=== PATIENT | female | born 1950 | race Caucasian/White ===

== ENCOUNTER → 2017-07-14 | Outpatient (CLI) | payer MEDICARE, OTHER | END | disposition home or self-care (01) | LOC: PCVCCLINIC 11:13 | PROVIDERS: ATTEND Internal Medicine Cardiovascular Disease | DX: I25.10 Atherosclerotic heart disease of native coronary artery without angina pectoris (principal); I10 Essential (primary) hypertension; E78.00 Pure hypercholesterolemia, unspecified; I65.23 Occlusion and stenosis of bilateral carotid arteries; E11.9 Type 2 diabetes mellitus without complications; Z87.442 Personal history of urinary calculi; Z79.82 Long term (current) use of aspirin; Z88.0 Allergy status to penicillin; Z88.2 Allergy status to sulfonamides | CPT/HCPCS: 80061; 93005; G0463 ==

== ENCOUNTER → 2017-09-09 | Outpatient (CLI) | payer MEDICARE, OTHER ==
[2017-08-02 14:00] VITALS: BP 149/82
[~2017-09-09] MED LIST: ASPI325T8 PO; ATOR40TA PO; BUTA1CAP8 PO; CHOL100013 PO; CITA20TA9 PO; DOCU-109 PO; Diovan; FENT1PAT13 TD; LYSI500T3 PO; Lipitor; METH-38 PO; MONT10TA9 PO; OMEG100021 PO; PANT40TA3 PO; POTA10TA4 PO; TOPI25TA52 PO; TOPI50TA38 PO; TRAM50TA PO; VALS160T3 PO; VIT1TAB.8 PO; [UNRECOGNIZED DRUG - OTHER]; celexa; fish oil; percocet; topamax; vitamin e
[2017-09-09 12:35] LABS: BASO # 0.1 x10^3/uL (0.0-0.2); BASO % 1 % (0-3); EOS % 4 % (0-3); HEMATOCRIT 42.2 % (36.0-47.0); HEMOGLOBIN 14.2 g/dL (12.0-15.5); LYMPH # 1.8 x10^3/uL (1.0-4.8); LYMPH % 31 % (24-48); MEAN CORPUSCULAR HEMOGLOBIN 30 pg (25-35); MEAN CORPUSCULAR HGB CONC 34 g/dL (31-37); MEAN CORPUSCULAR VOLUME 90 fL (79-100); MONO % 11 % (0-9); NEUT % 53 % (31-73); PLATELET COUNT 182 x10^3/uL (140-400); RED BLOOD COUNT 4.67 x10^6/uL (3.50-5.40); RED CELL DISTRIBUTION WIDTH 12.8 % (11.5-14.5); WHITE BLOOD COUNT 5.7 x10^3/uL (4.0-11.0)
[2017-09-09 12:48] LABS: ALBUMIN 3.6 g/dL (3.4-5.0); ALBUMIN/GLOBULIN RATIO 1.1 (1.0-1.7); CALCIUM 9.2 mg/dL (8.5-10.1); CREATININE 0.9 mg/dL (0.6-1.0); GFR 62.8; POTASSIUM 4.1 mmol/L (3.5-5.1); TOTAL BILIRUBIN 0.5 mg/dL (0.2-1.0); TOTAL PROTEIN 6.8 g/dL (6.4-8.2)
[2017-09-09 12:57] LABS: INR 1.1 (0.8-1.1); PROTHROMBIN TIME PATIENT 13.3 SEC (11.7-14.0)
== END | disposition home or self-care (01) ==
LOC: SURGPAT 10:57
PROVIDERS: ATTEND Neurological Surgery
DX: Z01.818 Encounter for other preprocedural examination (principal)
CPT/HCPCS: 36415; 80053; 85025; 85610; 85730; 87641

== ENCOUNTER 2017-09-19 07:15 | Inpatient (IN) | payer MEDICARE, OTHER ==
--- NOTE | 2017-09-16 15:37 | PREOP HP ---
DATE OF SERVICE: 09/19/2017 HISTORY OF PRESENT ILLNESS: The patient is a pleasant 66-year-old who is having continued difficulty with severe right hip and right anterior thigh and leg pain. The problem has been present for about 6 months. Began spontaneously. She rates her pain as a 6/10 during the day, rating it as a 10/10 at its worse. Standing and lying on the right side increases her pain. Lying on the left side seems to help her. Keeping her right leg bent also helps. She has had physical therapy as well as epidural steroid injections, which have not given her significant relief. She says that pain awakens her at night. In 2014, she did undergo lumbar microsurgery at L2-L3 and had similar pain, but says that the pain resolved until recently. I studied her with lumbar myelography. PAST MEDICAL HISTORY: Chest pains, headaches, head or neck injury, CAD, hepatitis, hypertension, kidney stones, ulcers, stroke, cold sores/fever blisters. PAST SURGICAL HISTORY: 1975, 1978, cervical laminectomy 1998, cervical diskectomy 2000, kidney stones 2007, LMD at L2-L3 in 02/2015. FAMILY HISTORY: Cancer, diabetes, CAD, hypertension, and migraine headaches. SOCIAL HISTORY: Retired. , with 2 kids. Exercises daily by walking. Nonsmoker. ETOH 1-2 times a year. Consumes 2 caffeinated beverages daily. ALLERGIES: PENICILLIN, CODEINE AND SULFA. CURRENT MEDICATIONS: Topamax, Celexa, Nexium, Lipitor, Diovan, aspirin, vitamin C, vitamin D, vitamin E, fish oil, Percocet. REVIEW OF SYSTEMS: A 12-point review of systems was obtained and is noncontributory except for that mentioned above. PHYSICAL EXAMINATION: NEUROSURGERY EXAMINATION: GENERAL APPEARANCE: Alert, pleasant, in no acute distress. HEAD: Normocephalic and atraumatic. SKIN: Warm and dry. MUSCULOSKELETAL: Lumbar paraspinal muscle bulk is normal, restricted range of motion of lumbar spine, [id number] tenderness of lower lumbar spine with palpation, normal range of motion of the lower extremities bilaterally. EXTREMITIES: No clubbing, cyanosis, or edema. NEUROLOGIC: Alert and oriented x 3, normal recent and remote memory, strength 5/5 in bilateral lower extremities, sensory was intact to light touch in bilateral lower extremities except for decreased sensation in the right anterior thigh, reflexes were trace and symmetric in the lower extremities bilaterally, normal gait. IMAGING: Reviewed. I reviewed a lumbar myelogram and post-myelogram CT scan. On that study, post-surgical changes are seen at L2-L3. At this level, there is some mild reverse spondylolisthesis which is associated with posterior disk protrusion. It is more prominent on the right side. There is moderately severe right foraminal encroachment at this level. There is also a posterior disk protrusion at L3-L4. ASSESSMENT: 1. Intervertebral disk disorders with radiculopathy, lumbosacral region. 2. Spondylolisthesis, lumbosacral region. PLAN: I believe the problems at L2-L3 are responsible for the majority of her pain. My recommendation is that she consider further surgery to decompress the exiting nerve roots in the foramen performing a wide diskectomy. She will need combined with this an instrumented lumbar fusion. I spoke with her about the operation. I spoke about the anterior diskectomy and fusion. I spoke about the posterior instrumentation and posterolateral fusion as well as microdecompression. We spoke about the technique and the risks involved as well as the expected postoperative course. She understands. She would like to go ahead. We will make the arrangements. TWILA BUSTILLO MD DR: BRENDON/meeta JOB#: [id number] / [id number]
[2017-09-19] VITALS (11 sets, daily range): BP systolic 124–144; BP diastolic 51–70
[~2017-09-19] VITALS: Ht 160 cm; Wt 74.4 kg
[~2017-09-19 07:15] MED LIST changes: +BACITRACIN 50,000 UNIT in IV NORMAL SALINE 1000ML BAG 1,000 ML IRR ONE; -DOCU-109 PO; -FENT1PAT13 TD; +IV RINGERS,LACTATED 1000ML 1,000 ML IV SCH; +LIDOCAINE 1% PF 2 ML VIAL. ID PRN; -METH-38 PO; +PROCHLORPERAZINE 10 MG/2 ML VIAL. IV PRN; -TRAM50TA PO; +VANCOMYCIN 1GM IVPB FOR OMNI 250 ML IV PRN; +fentaNYL PF VIAL 100 MCG/2 ML VIAL IV PRN
[2017-09-19] MEDS ORDERED: KETOROLAC 60 MG/2 ML INJ FOR OR. ONE (07:51)
[2017-09-19] MEDS ORDERED: BUPIVAC MPF-EPI 0.5%-1:200000 30 ML VIAL. ONE (07:51)
[2017-09-19] MEDS ORDERED: THROMBIN TOPICAL 20,000 UNIT SPRAY.SYRN KIT TP ONE (07:51)
[2017-09-19] MEDS ORDERED: GELATIN SPONGE SIZE 100. ONE (07:51)
[2017-09-19] MEDS ORDERED: PROPOFOL 50 ML IV ONE (08:50)
[2017-09-19] MEDS ORDERED: LIDOCAINE 2% PF Vial for OR 5 ML VIAL. ONE (08:50)
[2017-09-19] MEDS ORDERED: PROPOFOL 20 ML IV ONE (08:50)
[2017-09-19] MEDS ORDERED: 0.9 % SODIUM CHLORIDE 50 ML VIAL. IJ ONE (08:50)
[2017-09-19] MEDS ORDERED: REMIFENTANIL 2 MG VIAL. IV ONE (08:51)
[2017-09-19] MEDS ORDERED: fentaNYL PF VIAL 100 MCG/2 ML VIAL ONE (08:51)
[2017-09-19] MEDS ORDERED: ROCURONIUM 50 MG/5 ML VIAL. ONE (08:51)
[2017-09-19] MEDS ORDERED: SUCCINYLCHOLINE 200 MG/10 ML VIAL. ONE (08:51)
--- NOTE | 2017-09-19 09:36 | RAD ---
Indication: Lumbar herniated disc and spondylolisthesis. Axial imaging through the lumbar spine was performed without contrast. Sagittal and coronal reformations were also performed. Curvature of the lumbar spine is normal. There is minimal retrolisthesis of L2 on L3. Vertebral body heights are maintained. No acute compression fracture is detected. There is degenerative disc disease L2-3 level with disc space narrowing and marginal spurring. Canal is difficult to assess without intrathecal contrast. Bony canal is patent. The paraspinous tissues demonstrate marked atherosclerotic changes throughout the abdominal aorta which is nonaneurysmal. No paraspinous mass is seen. A disc/ossify complex does appear to narrow the neural foramina on the left at the L2-3 and L3-4 levels. Impression: Lumbar spondylosis, greatest at L2-3 level. There is neuroforaminal narrowing, described above. No acute bony abnormality is detected. PQRS Compliance Statement: One or more of the following individualized dose reduction techniques were utilized for this examination: 1. Automated exposure control 2. Adjustment of the mA and/or kV according to patient size 3. Use of iterative reconstruction technique
[2017-09-19] MEDS ORDERED: PROPOFOL 100 ML IV ONE (09:51)
[2017-09-19] MEDS ORDERED: DEXAMETHASONE SOD PHOS 20 MG/5 ML VIAL. ONE (11:44)
[2017-09-19] MEDS ORDERED: ONDANSETRON PF 4 MG/2 ML VIAL. ONE (11:44)
[2017-09-19] MEDS ORDERED: GLYCOPYRROLATE 1 MG/5 ML VIAL. ONE (12:11)
[2017-09-19] MEDS ORDERED: ONDANSETRON PF 4 MG/2 ML VIAL. IV PRN (13:15)
[2017-09-19] MEDS ORDERED: ZOLPIDEM 5 MG TABLET. PO PRN (13:15)
[2017-09-19] MEDS ORDERED: diphenhydrAMINE HCL 25 MG CAPSULE PO PRN (13:15)
[2017-09-19] MEDS ORDERED: 0.9 % SODIUM CHLORIDE 10 ML DISP.SYRIN. IV PRN (13:15)
[2017-09-19] MEDS ORDERED: CALCIUM CARBONATE 500 MG TAB.CHEW PO PRN (13:15)
[2017-09-19] MEDS ORDERED: fentaNYL PF VIAL 100 MCG/2 ML VIAL IV PRN ×2 (13:15→17:30)
[2017-09-19] MEDS ORDERED: diphenhydrAMINE 50 MG/ML VIAL IV PRN (13:15)
[2017-09-19] MEDS ORDERED: MAG HYDROX/ALUMINUM HYD/SIMETH 30 ML ORAL.SUSP PO PRN (13:15)
[2017-09-19] MEDS ORDERED: MAGNESIUM HYDROXIDE 2,400 MG/30 ML ORAL.SUSP. PO PRN (13:15)
[2017-09-19] MEDS ORDERED: DESFLURANE > 120 MINUTES IH ONE (14:12)
[2017-09-19] MEDS ORDERED: NEOSTIGMINE 10 MG/10 ML VIAL. ONE (14:28)
[2017-09-19] MEDS ORDERED: REMIFENTANIL 1 MG VIAL. IV ONE (14:42)
[2017-09-19] MEDS: fentaNYL PF VIAL 100 MCG/2 ML VIAL IV PRN ×7 (16:45→23:48)
--- NOTE | 2017-09-19 17:52 | OP ---
DATE OF SURGERY: 09/19/2017 PREOPERATIVE DIAGNOSES: Recurrent herniated disc with retrolisthesis and lumbar radiculopathy, L2-L3. POSTOPERATIVE DIAGNOSIS: Recurrent herniated disc with retrolisthesis and lumbar radiculopathy, L2-L3. OPERATION PERFORMED: 1. Reop hemilaminotomy and microdiscectomy, L2-L3, right. 2. Posterior instrumentation, L2-L3, posterolateral fusion L2-L3 with allograft and autograft bone. 3. The operation was done with EMG monitoring, fluoroscopy, microscopic dissection, [employer] guidance. SURGEON: Jarad Bustillo M.D. COSTUMER ASSISTANT: KEZIA Velez, who assisted with the exposure, the decompression, instrumentation and closure. OPERATIVE INDICATIONS: The patient is a pleasant 66-year-old woman who developed intractable back and right leg pain, which was very severe. She had imaging studies, recurrent disc herniation on the right side at L2-L3 along with the development of retrolisthesis at that level, and I recommended surgery to perform a discectomy combined with an instrumented fusion to help prevent any further incidence. I discussed with her the surgery, the risks, the technique and the expected postoperative course and she wished to go ahead. The patient in the past had undergone lumbar microsurgery at this level, L2-L3, on the right side for a right-sided disc herniation. Initially had done well following that surgery, but then deteriorated and then presented to me with a recurrence and these problems. DESCRIPTION OF PROCEDURE: Following general endotracheal anesthesia, the patient was positioned prone on the Temo table with lumbar regions prepped and draped in standard fashion. HARRIS hose and AV impulse boots were applied for DVT prophylaxis. The microscope was draped. Fluoroscopy was draped and brought into field. Monitoring was established. Vancomycin 1 gram was given. Using fluoroscopic guidance, an incision was made from L1 to L3. I took it down through skin and subcutaneous tissue. I attached the Brain[employer] star to L1 spinous process and then initialized the [employer] system. I then dissected and created an exposure by carrying the paraspinal muscles laterally and placing self-retaining retractors on the left side. I drilled into the posterior aspect of the pedicles with a high speed air drill and then passed the black ball, followed by ball tip probe, followed by tap and then screws were placed on this side in L2 and L3. I also drilled into the pedicles of L2 and L3 on the right side. I did place a screw on the right side at L2. I did not place a screw yet on the right at L3. I then brought in the microscope and then there was dense scar surrounding her previous hemilaminotomy side. I trimmed down the edges of her previous hemilaminotomy and then drilled directly down along the superior aspect of the pedicle and worked gently down and exposed the disc just above the pedicle. I worked medially and did enlarge her previous foraminotomy and at this point, then working superiorly to the level of the disc I encountered moderate subligamentous disc herniation, which I removed using the micro blunt hook and micro instruments and gently retracting the dura and scar and allowing access to this disc. As I worked, the entire region became very well decompressed. Following the discectomy then I placed the screw in L3 on the right. I placed the rods and I did distract slightly on the right side, which helped reduce the retrolisthesis. The construct was torqued in a sequential fashion. I irrigated copiously. During this time, I did drill and excoriated the transverse processes and lateral facets at L2 and L3 and placed a needle into the right iliac crest and then withdrew 20 mL of bone marrow, which I placed with allograft and autograft bone and placed this into the gutters bilaterally. I irrigated copiously then. I had an excellent construct. The fusion was in perfect position. The root was very well decompressed. The films looked quite good. I irrigated and closed the wound in layers after obtaining excellent hemostasis. The skin was closed with 4-0 subcuticular stitch. Operation went very well and the patient was taken to recovery room in excellent condition. I was quite pleased with the surgery. JARAD BUSTILLO MD DR: BRENDON/meeta JOB#: [id number] / [id number] SULEIMAN
[2017-09-19] MEDS: POTASSIUM CL 20MEQ D5-0.45NACL 1,000 ML IV SCH (18:12)
[2017-09-19] MEDS: MONTELUKAST SODIUM 10 MG TABLET. PO SCH (20:22)
[2017-09-19] MEDS: METHOCARBAMOL 750 MG TABLET PO SCH (20:22)
[2017-09-19] MEDS: DOCUSATE SODIUM 100 MG CAPSULE. PO SCH (20:22)
[2017-09-19] MEDS: ATORVASTATIN CALCIUM 40 MG TABLET. PO SCH (20:22)
[2017-09-19] MEDS: TOPIRAMATE 25 MG TABLET. PO SCH (20:23)
[2017-09-19] MEDS ORDERED: VANCOMYCIN 1 GM in IV DEXTROSE 5% 250 ML IV ONE (23:00)
[2017-09-20 03:51] VITALS: BP 123/73
[2017-09-20] MEDS: fentaNYL PF VIAL 100 MCG/2 ML VIAL IV PRN (04:45)
[2017-09-20] MEDS: POTASSIUM CL 20MEQ D5-0.45NACL 1,000 ML IV SCH ×2 (05:20→18:40)
[2017-09-20] MEDS ORDERED: traMADol 50 MG TABLET PO PRN (05:45)
[2017-09-20] MEDS: PANTOPRAZOLE 40 MG TABLET.DR. PO SCH (06:25)
[2017-09-20 06:43] VITALS: BP 118/70
[2017-09-20] MEDS ORDERED: LYSINE 500 MG PO SCH (07:00)
[2017-09-20] MEDS: OMEGA-3 FATTY ACIDS/FISH OIL 1,000 MG CAPSULE. PO SCH (08:34)
[2017-09-20] MEDS: CHOLECALCIFEROL (VITAMIN D3) 1,000 UNIT TABLET PO SCH (08:35)
[2017-09-20] MEDS: POTASSIUM CITRATE 10 MEQ TABLET.ER PO SCH (08:35)
[2017-09-20] MEDS: ASPIRIN 325 MG TABLET PO SCH (08:35)
[2017-09-20] MEDS: DOCUSATE SODIUM 100 MG CAPSULE. PO SCH ×2 (08:35→20:50)
[2017-09-20] MEDS: METHOCARBAMOL 750 MG TABLET PO SCH (08:36)
[2017-09-20] MEDS: CITALOPRAM 20 MG TABLET. PO SCH (08:36)
[2017-09-20] MEDS: TOPIRAMATE 25 MG TABLET. PO SCH ×2 (08:37→20:51)
[2017-09-20] MEDS: LOSARTAN POTASSIUM 50 MG TABLET. PO SCH (08:41)
[2017-09-20] MEDS ORDERED: OMEGA-3 FATTY ACIDS/FISH OIL 1,000 MG CAPSULE. PO ONE (09:00)
--- NOTE | 2017-09-20 10:13 | PDOC ---
PROGRESS NOTES Subjective Subjective POD #1 up in chair legs feel better back/ incisional pain had difficulty voiding this morning and had straight cath Objective Objective Vital Signs Date Time Temp Pulse Resp B/P (MAP) Pulse Ox O2 Delivery O2 Flow Rate FiO2 09/20/17 08:41 84 120/67 09/20/17 06:55 Room Air 09/20/17 06:43 98.4 17 99 98.4 09/19/17 16:45 10.0 Intake and Output 09/20/17 07:00 Intake Total 4010 ml Output Total 1050 ml Balance 2960 ml Intake Oral 740 ml IV Total 3270 ml Output Urine Total 900 ml Estimated Blood Loss 150 ml Physical Exam General: Alert, Oriented X3, Cooperative MUSCULOSKELETAL: Other (PLUNKETT) Skin: Other (dressing D,I, flat) Plan Plan of Care encouraged increased activity as tolerated, PT check PVR brace ordered Comment Review of Relevant I have reviewed the following items izabella (where applicable) has been applied. Labs Laboratory Tests Test 09/19/17 16:48 Glucose (Fingerstick) 151 mg/dL (70-99) Laboratory Tests Test 09/19/17 16:48 Glucose (Fingerstick) 151 mg/dL (70-99) Medications Current Medications Fentanyl Citrate (Fentanyl 2ml Vial) 25 mcg PRN Q5MIN PRN IV MILD PAIN; Start 09/19/17 at 07:00; Stop 09/19/17 at 18:54; Status DC Fentanyl Citrate (Fentanyl 2ml Vial) 50 mcg PRN Q5MIN PRN IV MODERATE PAIN Last administered on 09/19/17 17:18; Start 09/19/17 at 07:00; Stop 09/19/17 at 18:54; Status DC Ringer's Solution 1,000 ml @ 30 mls/hr Q24H IV Last administered on 07:54; Start 09/19/17 at 07:00; Stop 09/19/17 at 18:54; Status DC Lidocaine HCl (Xylocaine-Mpf 1% Vial) 2 ml PRN 1X PRN ID PRIOR TO IV START; Start 09/19/17 at 07:00; Stop 09/19/17 at 18:54; Status DC Prochlorperazine Edisylate (Compazine) 5 mg PACU PRN PRN IV NAUSEA, MRX1; Start 09/19/17 at 07:00; Stop 09/19/17 at 18:54; Status DC Vancomycin HCl 250 ml @ 250 mls/hr 1X PREOP PRN IV PRIOR TO PROCEDURE Last administered on 09/19/17 11:15; Start 09/19/17 at 06:00; Stop 09/19/17 at 18 :00; Status DC Bacitracin 64847 unit/Sodium Chloride 1,000 ml @ 1,000 mls/hr 1X PERIOP ONCE IRR Last administered on 09/19/17 11:53; Start 09/19/17 at 06:00; Stop at 06:59; Status DC Gelatin (Gelfoam Size 100) 1 each STK-MED ONCE .ROUTE Last administered on 11:53; Start 09/19/17 at 07:51; Stop 09/19/17 at 07:52; Status DC Bupivacaine HCl/ Epinephrine Bitart (Sensorcain-Mpf Epi 0.5%-1:173955) 30 ml STK -MED ONCE .ROUTE Last administered on 09/19/17 11:53; Start 09/19/17 at 07: 51; Stop 09/19/17 at 07:52; Status DC Ketorolac Tromethamine (Toradol For Or Only) 60 mg STK-MED ONCE .ROUTE Last administered on 09/19/17 11:53; Start 09/19/17 at 07:51; Stop 09/19/17 at 07 :52; Status DC Thrombin 20,000 unit STK-MED ONCE TP Last administered on 09/19/17 11:53; Start 09/19/17 at 07:51; Stop 09/19/17 at 07:52; Status DC Lidocaine HCl (Lidocaine Pf 2% Vial) 5 ml STK-MED ONCE .ROUTE ; Start 09/19/17 at 08:50; Stop 09/19/17 at 08:51; Status DC Propofol 50 ml @ As Directed STK-MED ONCE IV ; Start 09/19/17 at 08:50; Stop 09/19/17 at 08:51; Status DC Propofol 20 ml @ As Directed STK-MED ONCE IV ; Start 09/19/17 at 08:50; Stop 09/19/17 at 08:51; Status DC Sodium Chloride (Sodium Chloride) 50 ml STK-MED ONCE IJ ; Start 09/19/17 at 08: 50; Stop 09/19/17 at 08:51; Status DC Remifentanil HCl (Ultiva) 2 mg STK-MED ONCE IV ; Start 09/19/17 at 08:51; Stop 09/19/17 at 08:52; Status DC Fentanyl Citrate (Fentanyl 2ml Vial) 100 mcg STK-MED ONCE .ROUTE ; Start at 08:51; Stop 09/19/17 at 08:52; Status DC Succinylcholine Chloride (Anectine) 200 mg STK-MED ONCE .ROUTE ; Start at 08:51; Stop 09/19/17 at 08:52; Status DC Rocuronium Amelia (Zemuron) 50 mg STK-MED ONCE .ROUTE ; Start 09/19/17 at 08: 51; Stop 09/19/17 at 08:52; Status DC Propofol 100 ml @ As Directed STK-MED ONCE IV ; Start 09/19/17 at 09:51; Stop 09/19/17 at 09:52; Status DC Dexamethasone Sodium Phosphate (Decadron) 20 mg STK-MED ONCE .ROUTE ; Start at 11:44; Stop 09/19/17 at 11:45; Status DC Ondansetron HCl (Zofran) 4 mg STK-MED ONCE .ROUTE ; Start 09/19/17 at 11:44; Stop 09/19/17 at 11:45; Status DC Glycopyrrolate (Robinul) 1 mg STK-MED ONCE .ROUTE ; Start 09/19/17 at 12:11; Stop 09/19/17 at 12:12; Status DC Aspirin (Aislinn Aspirin) 325 mg DAILY PO Last administered on 09/20/17 08:35; Start 09/20/17 at 09:00 Atorvastatin Calcium (Lipitor) 40 mg QHS PO Last administered on 09/19/17 20: 22; Start 09/19/17 at 21:00 Citalopram Hydrobromide (CeleXA) 20 mg DAILY07 PO Last administered on 08:36; Start 09/20/17 at 07:00 Montelukast Sodium (Singulair) 10 mg HS PO Last administered on 09/19/17 20: 22; Start 09/19/17 at 21:00 Pantoprazole Sodium (Protonix) 40 mg DAILY07 PO Last administered on 06:25; Start 09/20/17 at 07:00 Potassium Citrate (Urocit-K) 10 meq DAILY07 PO Last administered on 09/20/17 08:35; Start 09/20/17 at 07:00 Topiramate (Topamax) 25 mg DAILY07 PO Last administered on 09/20/17 08:37; Start 09/20/17 at 07:00 Vitamin D (Vitamin D3) 1,000 unit DAILY PO Last administered on 09/20/17 08: 35; Start 09/20/17 at 09:00 Non-Formulary Medication 500 mg DAILY07 PO ; Start 09/20/17 at 07:00; Status UNV Fish Oil (Fish Oil) 1,000 mg DAILY07 PO Last administered on 09/20/17 08:34; Start 09/20/17 at 07:00 Topiramate (Topamax) 50 mg QHS PO Last administered on 09/19/17 20:23; Start 09/19/17 at 21:00 Losartan Potassium (Cozaar) 100 mg DAILY07 PO Last administered on 09/20/17 08:41; Start 09/20/17 at 07:00 Fentanyl Citrate (Fentanyl 2ml Vial) 50 mcg PRN Q2HR PRN IV PAIN Last administered on 09/20/17 04:45; Start 09/19/17 at 13:15 Fentanyl Citrate (Fentanyl 2ml Vial) 25 mcg PRN Q2HR PRN IV PAIN Last administered on 09/19/17 20:23; Start 09/19/17 at 13:15 Vancomycin HCl 1 gm/Dextrose 250 ml @ 250 mls/hr 1X ONCE IV Last administered on 09/19/17 23:42; Start 09/19/17 at 23:00; Stop 09/19/17 at 23 :59; Status DC Al Hydroxide/Mg Hydroxide (Mylanta Plus Xs) 30 ml PRN Q3HRS PRN PO HEARTBURN / GAS; Start 09/19/17 at 13:15 Calcium Carbonate/ Glycine (Tums) 500 mg PRN Q3HRS PRN PO INDIGESTION; Start 09/19/17 at 13:15 Diphenhydramine HCl (Benadryl) 25 mg PRN Q6HRS PRN PO ITCHING; Start 09/19/17 at 13:15 Diphenhydramine HCl (Benadryl) 25 mg PRN Q6HRS PRN IV ITCHING; Start 09/19/17 at 13:15 Zolpidem Tartrate (Ambien) 5 mg PRN QHS PRN PO INSOMNIA, MAY REPEAT IN 1HR; Start 09/19/17 at 13:15 Sodium Chloride (Normal Saline Flush) 3 ml QSHIFT PRN IV AFTER MEDS AND BLOOD DRAWS; Start 09/19/17 at 13:15 Potassium Chloride/Dextrose/ Sod Cl 1,000 ml @ 75 mls/hr [id number] IV Last administered on 09/19/17 18:12; Start 09/19/17 at 16:00 Methocarbamol (Robaxin) 750 mg TID PO Last administered on 09/20/17 08:36; Start 09/19/17 at 21:00 Docusate Sodium (Colace) 100 mg BID PO Last administered on 09/20/17 08:35; Start 09/19/17 at 21:00 Magnesium Hydroxide (Milk Of Magnesia) 2,400 mg PRN Q12HR PRN PO CONSTIPATION; Start 09/19/17 at 13:15 Ondansetron HCl (Zofran) 4 mg PRN Q6HRS PRN IV NAUESA, 1ST CHOICE; Start 09/19 at 13:15 Desflurane (Suprane) 90 ml STK-MED ONCE IH ; Start 09/19/17 at 14:12; Stop at 14:13; Status DC Neostigmine Methylsulfate (Bloxiverz) 10 mg STK-MED ONCE .ROUTE ; Start at 14:28; Stop 09/19/17 at 14:29; Status DC Remifentanil HCl (Ultiva) 1 mg STK-MED ONCE IV ; Start 09/19/17 at 14:42; Stop 09/19/17 at 14:43; Status DC Fentanyl Citrate (Fentanyl 2ml Vial) 25 mcg PRN Q5MIN PRN IV Acute Pain; Start 09/19/17 at 17:30; Stop 09/20/17 at 17:29 Fentanyl Citrate (Fentanyl 2ml Vial) 50 mcg PRN Q5MIN PRN IV Acute Pain Last administered on 09/19/17 17:42; Start 09/19/17 at 17:30; Stop 09/20/17 at 17 :29 Tramadol HCl (Ultram) 50 mg PRN Q6HRS PRN PO PAIN Last administered on 05:57; Start 09/20/17 at 05:45 Tramadol HCl (Ultram) 100 mg PRN Q6HRS PRN PO PAIN; Start 09/20/17 at 05:45 Active Scripts Active Reported Child's Hillrose-3 Dha Multivitam (Vit A,C,D3,E/Hillrose-3/Ala/Dha) 1 Each Tab.chew 1 Each PO Vitamin D (Cholecalciferol (Vitamin D3)) 1,000 Unit Capsule 1 Cap PO DAILY Lysine 500 Mg Tablet 500 Mg PO DAILY07 Fish Oil 1,000 mg Softgel (Hillrose-3/Dha/Epa/Fish Oil) 1,000 Mg Capsule 1,000 Mg PO DAILY07 Montelukast Sodium Tablet (Montelukast Sodium) 10 Mg Tablet 10 Mg PO HS Lipitor (Atorvastatin Calcium) 40 Mg Tablet 1 Tab PO QHS Celexa (Citalopram Hydrobromide) 20 Mg Tablet 1 Tab PO DAILY07 Topamax (Topiramate) 50 Mg Tablet 50 Mg PO HS Topamax (Topiramate) 25 Mg Tablet 1 Tab PO DAILY07 Protonix (Pantoprazole Sodium) 40 Mg Tablet.dr 1 Tab PO DAILY07 Diovan (Valsartan) 160 Mg Tablet 160 Mg PO DAILY07 Urocit-K (Potassium Citrate) 10 Meq Tablet.er 1,080 Mg PO DAILY07 Aspirin 325 Mg Tablet 325 Mg PO DAILY Vitals/I & O Vital Sign - Last 24 Hours 09/19/17 09/19/17 09/19/17 09/19/17 16:21 16:21 16:36 16:45 Temp 98.7 98.7 Pulse 98 84 Resp 20 18 20 B/P (MAP) 168/94 153/67 Pulse Ox 100 100 100 O2 Delivery Mask Simple Mask Simple Mask Simple Mask O2 Flow Rate 10 10 10 10.0 09/19/17 09/19/17 09/19/17 09/19/17 16:51 16:53 17:06 17:07 Pulse 88 74 Resp 18 20 18 18 B/P (MAP) 162/62 146/75 Pulse Ox 97 97 96 99 O2 Delivery Room Air Room Air Room Air Room Air 09/19/17 09/19/17 09/19/17 09/19/17 17:18 17:21 17:31 17:36 Temp 98.5 98.5 Pulse 64 75 Resp 18 18 18 14 B/P (MAP) 140/67 146/72 Pulse Ox 97 96 96 92 O2 Delivery Room Air Room Air Room Air Room Air 09/19/17 09/19/17 09/19/17 09/19/17 17:42 18:00 18:15 18:30 Temp 97.8 97.8 Pulse 78 74 91 Resp 14 16 B/P (MAP) 134/64 (87) 144/66 (92) 137/70 (92) Pulse Ox 92 99 O2 Delivery Room Air Room Air 09/19/17 09/19/17 09/19/17 09/19/17 18:45 19:00 19:15 19:30 Temp 97.8 97.8 Pulse 72 79 70 69 Resp 18 B/P (MAP) 130/51 (77) 125/70 (88) 128/57 (80) 140/69 (92) Pulse Ox 98 O2 Delivery Room Air 09/19/17 09/19/17 09/19/17 09/19/17 19:55 20:00 20:23 20:30 Pulse 79 64 Resp 18 B/P (MAP) 128/66 (86) 135/65 (88) Pulse Ox 98 O2 Delivery Room Air Room Air 09/19/17 09/19/17 09/19/17 09/19/17 20:55 21:30 22:32 23:48 Temp 97.8 97.8 Pulse 67 69 Resp 15 17 20 B/P (MAP) 124/57 (79) 126/57 (80) Pulse Ox 97 97 O2 Delivery Room Air Room Air Room Air 09/20/17 09/20/17 09/20/17 09/20/17 03:51 04:45 05:17 05:57 Temp 97.4 97.4 Pulse 75 Resp 18 18 18 B/P (MAP) 123/73 (90) Pulse Ox 100 100 100 O2 Delivery Room Air Room Air Room Air Room Air 09/20/17 09/20/17 09/20/17 06:43 06:55 08:41 Temp 98.4 98.4 Pulse 77 84 Resp 17 B/P (MAP) 118/70 (86) 120/67 Pulse Ox 99 O2 Delivery Room Air Room Air Intake and Output 09/19/17 09/19/17 09/20/17 15:00 23:00 07:00 Intake Total 250 ml 1900 ml 1860 ml Output Total 450 ml 600 ml Balance 250 ml 1450 ml 1260 ml TWILA BUSTILLO MD Sep 20, 2017 10:13
[2017-09-20 11:03] VITALS: BP 117/59
[2017-09-20] MEDS: traMADol 50 MG TABLET PO PRN ×2 (11:50→19:15)
[2017-09-20 15:07] VITALS: BP 118/59
[2017-09-20 18:20] VITALS: BP 132/70
[2017-09-20] MEDS: ATORVASTATIN CALCIUM 40 MG TABLET. PO SCH (20:50)
[2017-09-20] MEDS: MONTELUKAST SODIUM 10 MG TABLET. PO SCH (20:51)
[2017-09-20 23:00] VITALS: BP 133/65
[2017-09-21] MEDS: POTASSIUM CL 20MEQ D5-0.45NACL 1,000 ML IV SCH (00:04)
[2017-09-21 03:00] VITALS: BP 123/64
[2017-09-21 05:00] VITALS: BP 112/62
[2017-09-21] MEDS: PANTOPRAZOLE 40 MG TABLET.DR. PO SCH (06:29)
[2017-09-21] MEDS: TOPIRAMATE 25 MG TABLET. PO SCH (06:30)
[2017-09-21] MEDS: CITALOPRAM 20 MG TABLET. PO SCH (06:30)
[2017-09-21] MEDS: POTASSIUM CITRATE 10 MEQ TABLET.ER PO SCH (06:30)
[2017-09-21] MEDS: LOSARTAN POTASSIUM 50 MG TABLET. PO SCH (06:31)
[2017-09-21] MEDS: OMEGA-3 FATTY ACIDS/FISH OIL 1,000 MG CAPSULE. PO SCH (06:32)
[2017-09-21] MEDS: CHOLECALCIFEROL (VITAMIN D3) 1,000 UNIT TABLET PO SCH (08:16)
[2017-09-21] MEDS: ASPIRIN 325 MG TABLET PO SCH (08:16)
[2017-09-21] MEDS: DOCUSATE SODIUM 100 MG CAPSULE. PO SCH (08:16)
[2017-09-21] MEDS: traMADol 50 MG TABLET PO PRN ×2 (08:17→16:47)
[2017-09-21] MEDS ORDERED: fentaNYL 12MCG/HR PATCH 1 PATCH PATCH.TD72 TD SCH (09:00)
[2017-09-21 11:15] VITALS: BP 126/70
--- NOTE | 2017-09-21 11:27 | DISCH ---
DISCHARGE INSTRUCTIONS Condition on Discharge Condition on Discharge: Stable Activity After Discharge Activity Instructions for Disc: Activity as tolerated, Avoid exertion Bathing Instructions: Shower-keep dressing dry Lifting Instructions after Dis: No heavy lifting, No pulling or pushing, Do not lift >10 pounds Driving Instructions after Dis: No driving for 2 weeks Diet after Discharge Additional Diet Restrictions: resume home diet Wound Incision Care Wound/Incision Care: Ice to area for comfort Other wound/incision instructi: may remove dressing when dry then may shower- no soaking Contacting the after DC Call your doctor for: Concerns you may have Follow-Up Follow up with: Dr. Bustillo's nurse in 2 weeks [phone] TWILA BUSTILLO MD Sep 21, 2017 11:26
[2017-09-21] MEDS ORDERED: DOCU-109 PO (11:32)
[2017-09-21] MEDS ORDERED: FENT1PAT13 TD ×2 (12:45→18:51)
[2017-09-21] MEDS ORDERED: TRAM50TA PO ×2 (12:46→18:51)
[2017-09-21] MEDS ORDERED: METH-38 PO (12:47)
--- NOTE | 2017-09-21 13:31 | DS ---
DATE OF DISCHARGE: 09/21/2017 DISCHARGE DIAGNOSES: Recurrent herniated disk with retrolisthesis and lumbar radiculopathy, L2-L3. OPERATION PERFORMED: Reop hemilaminotomy and microdiskectomy, L2-L3 right; posterior instrumentation, L2-L3 with posterolateral fusion with allograft and autograft bone, L2-L3. HISTORY OF PRESENT ILLNESS: The patient is a pleasant 66-year-old woman who developed intractable back and right leg pain which was severe. She had on imaging studies recurrent disk herniation on the right side at L2-L3 along with development of retrolisthesis at that level. I recommended surgery to perform a diskectomy combined with instrumented fusion and help prevent any further incidents. I discussed with her the surgery, the risks, the technique and the expected postoperative course and she wished to go ahead. The patient in the past had undergone lumbar microsurgery at this level at L2-L3 on the right for right-sided disk herniation. Initially, she had done well with that surgery, but deteriorated and the problem recurred and she presented with recurrence of symptoms and these problems. HOSPITAL COURSE: She was admitted to the floor postoperatively. She has done well. She has been up ambulating in the room and in the halls with physical therapy. She notes improvement in her lower extremity symptoms. Her pain is well controlled and she is in good condition to discharge home. DISCHARGE MEDICATIONS: She will resume her medications per the MRAD. DISCHARGE INSTRUCTIONS: She was instructed regarding incision care, activity restrictions and expectations for the next several weeks. She will follow up in our office in 2 weeks. She understands to call with any questions or concerns. TWILA BUSTILLO MD DR: JONI/meeta JOB#: [id number] / [id number]
[2017-09-21 15:04] VITALS: BP 118/66
--- NOTE | 2017-09-23 14:55 | PATHOLOGY ---
PATHOLOGY REPORT * * * * * * * * FINAL DIAGNOSIS: Segments of fibrocartilaginous, fibroadipose, and skeletal muscle tissue and bone, lumbar decompression and disc: - Degenerative changes of fibrocartilaginous tissue. COMMENT: There is no evidence of an acute inflammatory process or malignancy. (JPM:pit; 09/23/2017) REPORT ELECTRONICALLY SIGNED BY: Nelson Mixon M.D. DATE/TIME: 09/23/2017 14:54 * * * * * * * * GROSS PATHOLOGY: Received in formalin labeled "Zain Parker, lumbar decompression and disc," are multiple segments of barlow-white and pale brown rubbery and gritty tissue measuring 3.6 x 1.9 x 0.9 cm in aggregate dimensions with admixed calcified tissue. The tissue is submitted representatively in cassette A1. (SDY; 09/21/2017) INITIAL CPT CODE(S): A; 56745 Professional services [place] [address] Technical services performed by [facility] at [address] [place] [address]. Reynaldo Thomas, fax: SPECIMEN(S) RECEIVED: A.Lumbar decompression and disc CLINICAL HISTORY: Spondylolisthesis, lumbar herniated disc with radiculopathy PATIENT: ZAIN PARKER /AGE: 1109/29/1950 (Age: 66) PATIENT #: [id number] ALT CASE #: SPECIMEN COLLECTION DATE: 09/19/2017 SPECIMEN RECEIVED DATE: 09/20/2017 [facility] - [address] [place] [address] - PHONE: [phone] * * * END OF REPORT * * *
== END 2017-09-21 15:00 | disposition home or self-care (01) | DRG 460 ==
LOC: OPSVCIP 07:15 → 4 SOUTHEST 17:54
PROVIDERS: ADMIT Neurological Surgery; ATTEND Neurological Surgery
PROC: 07DR3ZZ Extraction of Iliac Bone Marrow, Percutaneous Approach (ICD-10-PCS; 2017-09-19)
PROC: 0SB20ZZ Excision of Lumbar Vertebral Disc, Open Approach (ICD-10-PCS; 2017-09-19)
PROC: 4A1104G Monitoring of Peripheral Nervous Electrical Activity, Intraoperative, Open Approach (ICD-10-PCS; 2017-09-19)
PROC: 0SG0071 Fusion of Lumbar Vertebral Joint with Autologous Tissue Substitute, Posterior Approach, Posterior Column, Open Approach (ICD-10-PCS; principal; 2017-09-19 10:30)
DX: M51.26 Other intervertebral disc displacement, lumbar region (principal); I10 Essential (primary) hypertension; M54.16 Radiculopathy, lumbar region; M43.16 Spondylolisthesis, lumbar region; I25.10 Atherosclerotic heart disease of native coronary artery without angina pectoris; Z87.442 Personal history of urinary calculi; Z87.828 Personal history of other (healed) physical injury and trauma; Z86.73 Personal history of transient ischemic attack (TIA), and cerebral infarction without residual deficits; Z82.49 Family history of ischemic heart disease and other diseases of the circulatory system; Z83.3 Family history of diabetes mellitus; Z80.9 Family history of malignant neoplasm, unspecified; Z82.0 Family history of epilepsy and other diseases of the nervous system; Z88.6 Allergy status to analgesic agent; Z88.0 Allergy status to penicillin; Z88.2 Allergy status to sulfonamides; Z98.891 History of uterine scar from previous surgery
CPT/HCPCS: 36415; 72131; 76000; 82962; 86850; 86900; 86901; 88304; C1713; J0330; J1100; J1885; J2405; J2704; J2710; J3010; J3370; J3490; J7030; J7120; 97110; 97116; 97530; J2001

== ENCOUNTER → 2017-12-21 | Outpatient (CLI) | payer MEDICARE, OTHER | END | disposition home or self-care (01) | LOC: RAD 08:31 | DX: M47.896 Other spondylosis, lumbar region (principal); M43.16 Spondylolisthesis, lumbar region; Z98.890 Other specified postprocedural states; Z98.1 Arthrodesis status | CPT/HCPCS: 72100 ==

== ENCOUNTER → 2018-02-02 | Outpatient (CLI) | payer MEDICARE, OTHER | END | disposition home or self-care (01) | LOC: PCVCIMAG 10:23 | DX: I65.23 Occlusion and stenosis of bilateral carotid arteries (principal); I25.10 Atherosclerotic heart disease of native coronary artery without angina pectoris; I10 Essential (primary) hypertension; E78.5 Hyperlipidemia, unspecified; Z95.5 Presence of coronary angioplasty implant and graft; Z82.49 Family history of ischemic heart disease and other diseases of the circulatory system | CPT/HCPCS: 93325; 93351; 93880 ==

== ENCOUNTER → 2018-11-15 | Outpatient (CLI) | payer MEDICARE, OTHER ==
[~2018-11-15] MED LIST changes: -BACITRACIN 50,000 UNIT in IV NORMAL SALINE 1000ML BAG 1,000 ML IRR ONE; +DOCU-109 PO; +FENT1PAT13 TD; -IV RINGERS,LACTATED 1000ML 1,000 ML IV SCH; -LIDOCAINE 1% PF 2 ML VIAL. ID PRN; +METH-38 PO; +MONT10TA49 PO; -MONT10TA9 PO; -PANT40TA3 PO; +PANT40TA77 PO; -PROCHLORPERAZINE 10 MG/2 ML VIAL. IV PRN; +TRAM50TA PO; -VANCOMYCIN 1GM IVPB FOR OMNI 250 ML IV PRN; -fentaNYL PF VIAL 100 MCG/2 ML VIAL IV PRN
== END | disposition home or self-care (01) ==
LOC: PCVCCLINIC 11:38
PROVIDERS: ATTEND Internal Medicine Cardiovascular Disease
DX: I25.10 Atherosclerotic heart disease of native coronary artery without angina pectoris (principal); I10 Essential (primary) hypertension; E78.00 Pure hypercholesterolemia, unspecified; I65.23 Occlusion and stenosis of bilateral carotid arteries; Z79.82 Long term (current) use of aspirin
CPT/HCPCS: 36415; 80061; 93005; G0463

== ENCOUNTER → 2019-01-18 | Outpatient (CLI) | payer MEDICARE, OTHER ==
[~2019-01-18] MED LIST changes: -MONT10TA49 PO; +MONT10TA9 PO; +PANT40TA3 PO; -PANT40TA77 PO
--- NOTE | 2019-01-18 12:29 | PCVCIMAG ---
APPROVED REPORT Study performed: 01/18/2019 10:22:58 Exam: Stress Echocardiogram Indication: Chest pain, CAD s/p PCI Patient Location: Echo lab Stress Nurse: Kathy Bernard RN Room #: 1 Status: routine Ht: 5 ft 3 in HR: 72 bpm BP: 132/80 mmHg Rhythm: NSR Medical History Medical History: HTN, Hyperlipidemia, Cardiac Risk Factors: HTN,HCL Previous Cardiac Procedures: PCI Pretest Chest Pain Characteristics: No chest pain Exercise History: Indeterminate Procedure The patient underwent an Exercise Stress Test using the Sky Protocol. Blood pressure, heart rate, and EKG were monitored. An Echocardiogram was performed by design engineering technician in four stages in quad fashion. At peak stress, four selected images were obtained and placed side by side with resting images for comparison. Stress Test Details Stress Test: Exercise stress testing was performed using a Sky protocol. HR Resting HR: 72 bpmMax Heart Rate (APMHR): 153 bpm Max HR Achieved: 141 bpmTarget HR (85% APMHR): 130 bpm % of APMHR: 92 Recovery HR: 85 bpm HR response to stress: Normal HR response to stress BP Resting BP: 132/80 mmHg Max BP: 164/80 mmHg Recovery BP: 124/78 mmHg BP response to stress: Normal blood pressure response to stress. ECG Resting ECG: Sinus Rhythm, nonspecific ST-T abnormalities Stress ECG: Sinus Rhythm, nonspecific ST-T abnormalities ST Change: non-diagnostic EKG changes Arrhythmia: None Recovery ECG: Sinus Rhythm, nonspecific ST-T abnormalities Recovery Arrhythmia: None Clinical Reason for Termination: Maximal effort Stress Symptoms: Chest pain Exercise duration: 9 min 00 sec Highest Stage Achieved: Stage 3: 3.4 mph at 14% grade. Exercise capacity: 10.1 METs Overall Exercise Capacity for Age: Average Scale: Active Angina Score: Exercise-Limiting No complications. Stress ECG Conclusion The patient exercised according to the SKY protocol for 9:00 mins; achieving a work level of 10.1 METS. The resting heart rate of 72 bpm christiana to a maximum heart rate of 141 bpm. This value represent 92% of the maximal, age-predicted heart rate. The resting blood pressure of 132/80 mmHg, christiana to a maximum blood pressure of 164/80 mmHg. The exercise test was stopped due to chest pain. Pre-Stress Echo The resting Echocardiogram showed normal left ventricular contractility with an estimated Ejection Fraction of about 55-60%. Post-Stress Echo The stress Echocardiogram showed normal left ventricular contractility with an estimated Ejection Fraction of about 60-65%. Mild hypokinesis of the apex post exercise. Conclusion Clinical Response: Ischemic Exercise Capacity: Average Stress ECG Response: Equivocal Stress Echo Images: Equivocal Patient experienced chest pain at a 4 on a scale of 10 at 5 min into exercise. At 8:00 it had progressed to a 7-8. Stress was stopped at 9:00 at the patients request due to chest pain. <Conclusion> Patient experienced chest pain at a 4 on a scale of 10 at 5 min into exercise. At 8:00 it had progressed to a 7-8. Stress was stopped at 9:00 at the patients request due to chest pain.
== END | disposition home or self-care (01) ==
LOC: PCVCIMAG 10:51
PROVIDERS: ATTEND Internal Medicine Cardiovascular Disease
DX: R07.9 Chest pain, unspecified (principal); I25.10 Atherosclerotic heart disease of native coronary artery without angina pectoris; I10 Essential (primary) hypertension; E78.00 Pure hypercholesterolemia, unspecified; Z95.9 Presence of cardiac and vascular implant and graft, unspecified
CPT/HCPCS: 93325; 93351

== ENCOUNTER → 2019-04-26 | Outpatient (CLI) | payer MEDICARE, OTHER ==
[~2019-04-26] MED LIST changes: +MONT10TA49 PO; -MONT10TA9 PO; -PANT40TA3 PO; +PANT40TA77 PO
== END | disposition home or self-care (01) ==
LOC: PCVCCLINIC 11:20
PROVIDERS: ATTEND Internal Medicine Cardiovascular Disease
DX: I25.10 Atherosclerotic heart disease of native coronary artery without angina pectoris (principal); E11.9 Type 2 diabetes mellitus without complications; E78.00 Pure hypercholesterolemia, unspecified; I10 Essential (primary) hypertension; Z79.82 Long term (current) use of aspirin; Z88.5 Allergy status to narcotic agent
CPT/HCPCS: 36415; 80061; 93005; G0463

== ENCOUNTER → 2020-03-17 | Outpatient (CLI) | payer MEDICARE, OTHER ==
[~2020-03-17] MED LIST changes: +DOCU-153 PO; +METH750T2 PO; +OMEP20TA63 PO; +TRAM-48 PO
[2020-03-17 12:18] LABS: BASO % 1 % (0-3); EOS # 0.2 x10^3/uL (0.0-0.7); EOS % 3 % (0-3); HEMATOCRIT 41.6 % (36.0-47.0); HEMOGLOBIN 13.6 g/dL (12.0-15.5); LYMPH # 1.6 x10^3/uL (1.0-4.8); LYMPH % 31 % (24-48); MEAN CORPUSCULAR HEMOGLOBIN 29 pg (25-35); MEAN CORPUSCULAR HGB CONC 33 g/dL (31-37); MEAN CORPUSCULAR VOLUME 90 fL (79-100); MONO # 0.4 x10^3/uL (0.0-1.1); MONO % 9 % (0-9); NEUT # 2.8 x10^3/uL (1.8-7.7); NEUT % 56 % (31-73); PLATELET COUNT 170 x10^3/uL (140-400); RED BLOOD COUNT 4.64 x10^6/uL (3.50-5.40); RED CELL DISTRIBUTION WIDTH 13.9 % (11.5-14.5)
[2020-03-17 12:35] LABS: ALBUMIN 3.5 g/dL (3.4-5.0); ALBUMIN/GLOBULIN RATIO 1.2 (1.0-1.7); CALCIUM 8.4 mg/dL (8.5-10.1); GFR 55.1; POTASSIUM 3.8 mmol/L (3.5-5.1); TOTAL BILIRUBIN 0.5 mg/dL (0.2-1.0); TOTAL PROTEIN 6.4 g/dL (6.4-8.2)
--- NOTE | 2020-03-19 13:35 | HP ---
ADMIT DATE: 03/20/2020. PREOPERATIVE HISTORY AND PHYSICAL DATE OF SURGERY: 03/20/2020. HISTORY OF PRESENT ILLNESS: The patient is a pleasant 69-year-old who is experiencing low back pain on the right side. She is having no pain which radiates into her lower extremities. She does have a fractured pedicle screw in the right body of L2. The problem has been present for several months and the pain is slowly worsening. She rates her pain as a 4/10. She has had significant pain some days and at times no pain. She takes tramadol when necessary for her pain. PAST MEDICAL HISTORY: Chest pain, headaches and migraines, head or neck injury, CAD, hepatitis, hypertension, kidney stones, ulcers, stroke, cold sores and fever blisters. PAST SURGICAL HISTORY: in 1975, in 1978, cervical laminectomy in 1998, cervical diskectomy in 2000, kidney stones in 2007, LMD at L2-L3 in 02/2015, lumbar decompression at L2-L3 with posterior instrumentation and fusion L2-L3 in 08/2017, angioplasty in 2018. FAMILY HISTORY: Cancer, diabetes, CAD, hypertension and migraine headaches. SOCIAL HISTORY: She is retired. , with 2 kids. Daily exercises by walking. She is a nonsmoker. Drinks alcohol 1-2 times per year. ALLERGIES: PENICILLIN, CODEINE, MORPHINE, AND SULFA. CURRENT MEDICATIONS: Topamax, Celexa, Nexium, Lipitor, Diovan, aspirin, vitamin C, vitamin D, vitamin E, fish oil, tramadol, Singulair. REVIEW OF SYSTEMS: A 12-point review of systems was obtained and is noncontributory except that mentioned above. PHYSICAL EXAMINATION: NEUROSURGERY EXAMINATION: GENERAL APPEARANCE: Alert, pleasant, no acute distress. HEAD: Normocephalic and atraumatic. SKIN: Warm and dry, well-healed lumbar incision. MUSCULOSKELETAL: Lumbar paraspinal muscle bulk is normal, restricted range of motion of the lumbar spine, [id number] tenderness of the lower lumbar spine with palpation, normal range of motion of the lower extremities bilaterally. EXTREMITIES: No clubbing, cyanosis or edema. NEUROLOGIC: Alert and oriented x 3, normal recent and remote memory, strength 5/5 in bilateral lower extremities, sensory was intact to light touch in the lower extremities bilaterally, reflexes are present and symmetric in bilateral lower extremities, negative straight leg raising bilaterally, normal gait. IMAGING: I reviewed the imaging studies. I am concerned that she has a nonunion and that there appears to be significant fusion bone resorption at L2-L3. The pedicle screw at L2 on the right is fractured within the pedicle. Additionally, at L3-L4 on the left, she appears to have a foraminal disc extrusion or bulging. ASSESSMENT/ PLAN: Her pain is in the right side of her lower back. She is having no pain on the left side and therefore, I feel that the L3-L4 foraminal disc problem is asymptomatic. I am unsure whether or not these episodes of pain are related to the nonunion that exist at L2-L3. I have told her that in order to take care of the problem, surgery would be required along with removal of hardware and replacement and augmentation of her fusion. I would obtain hip bone and supplement the fusion. We spoke about the technique, risks, and expected postoperative course. She understands. She would like to go ahead. We will make the arrangements. TWILA BUSTILLO MD DR: BRENDON/meeta JOB#: [id number] / [id number] SULEIMAN
== END ==
LOC: SURGPAT 11:34
PROVIDERS: ATTEND Neurological Surgery
DX: Z01.818 Encounter for other preprocedural examination (principal); Z11.59 Encounter for screening for other viral diseases; I10 Essential (primary) hypertension; I25.10 Atherosclerotic heart disease of native coronary artery without angina pectoris; M96.0 Pseudarthrosis after fusion or arthrodesis; N20.0 Calculus of kidney; K75.9 Inflammatory liver disease, unspecified
CPT/HCPCS: 36415; 80053; 85025; 85610; 85730; 87641; C9803-CS; U0003-CS

== ENCOUNTER → 2020-04-18 | Outpatient (CLI) | payer MEDICARE, OTHER ==
[2020-03-21 15:00] VITALS: BP 110/50
--- NOTE | 2020-04-18 13:55 | KCIC ---
CERVICAL SPINE WO CONTRAST DATE: 04/18/2020 1:15 PM INDICATION: CERVICAL RADICULOPATHY, PRIOR SURGERY 1997, LUE pain after a fall and striking head. Neck pain with LROM. TECHNIQUE: Multiplanar multisequence magnetic resonance imaging of the cervical spine was performed without administration of intravenous contrast using the standard cervical spine protocol. COMPARISON: None. FINDINGS: Postsurgical changes of ACDF at C5-C7. Partial osseous fusion across the C5-6 disc space. Straightening of the cervical lordosis. Trace retrolisthesis at C4-5. No acute fracture. Multilevel degenerative disc desiccation and disc height loss. No marrow replacing process to suggest malignancy. The spinal cord is normal in signal intensity. On the limited views of the cranial cavity and brain, the cerebellum and carolyn have normal morphology and signal characteristics. No Chiari malformation. No soft tissue abnormality. Normal signal voids are present in the vertebral arteries. C2-3: Disc osteophyte complex. No significant spinal canal stenosis or neural foraminal narrowing. C3-4: Disc osteophyte complex. Uncovertebral hypertrophy. Moderate left facet arthropathy. Mild right and moderate left neural foraminal narrowing. No spinal canal stenosis. C4-5: Disc osteophyte complex. Uncovertebral hypertrophy. Mild facet arthropathy. Mild right and moderate left neural foraminal narrowing. Mild spinal canal stenosis. C5-6: Uncovertebral hypertrophy. Mild bilateral neural foraminal narrowing. No spinal canal stenosis. C6-7: Disc osteophyte complex. Uncovertebral hypertrophy. No significant spinal canal stenosis. Mild bilateral neural foraminal narrowing. C7-T1: No significant spinal canal stenosis or neural foraminal narrowing. IMPRESSION: Mild to moderate cervical spondylosis, detailed level by level above. Electronically signed by: Darren Leon MD (04/18/2020 1:52 PM) [id number]
== END | disposition home or self-care (01) ==
LOC: KCIC MRI 12:42
PROVIDERS: ATTEND Neurological Surgery
DX: M47.22 Other spondylosis with radiculopathy, cervical region (principal); M25.78 Osteophyte, vertebrae; M48.02 Spinal stenosis, cervical region
CPT/HCPCS: 72141

== ENCOUNTER → 2020-05-15 | Outpatient (CLI) | payer MEDICARE, OTHER ==
[2020-03-21 15:00] VITALS: BP 110/50
[~2020-05-15] MED LIST changes: +IOHEXOL 180 MG/ML 10 ML VIAL. ONE; +methylPREDNISolone ACETATE 40 MG/ML VIAL. ONE; +methylPREDNISolone ACETATE 80 MG/ML VIAL. ONE
--- NOTE | 2020-05-15 17:03 | PAIN ---
DATE OF SERVICE: 05/15/2020 INITIAL CONSULTATION FOR PAIN CLINIC CHIEF COMPLAINT: Neck and left upper extremity pain. HISTORY OF PRESENT ILLNESS: This is a 69-year-old female who presents with history of pain in the base of neck and left shoulder since 03/29/2020. She was in her bathroom at home and began to become lightheaded and she fell and passed out, striking her head on her sink and then backwards, her was present and caught her from going any further. The patient reports she does not remember the incident except for being nauseous and lightheaded and then woke up with a significant headache as well as pain in the base of neck and then left shoulder and arm. The patient reports it is radiating into the anterior bicep and anterior deltoid as well, but that is resolved to some extent. It is mainly just in the base of neck and shoulders. She has had 2 previous spinal surgeries on the neck, both anterior cervical diskectomy with fusion and posterior decompression and says that it feels similar to that what it did just before her anterior cervical fusion. The patient reports it is beginning to resolve in the arm; however, this pain is seen at the base of neck and left shoulder laterally and anteriorly in the shoulder. The patient reports it is becoming constant and sharp in quality, worse with repetitive motions, reaching over her head with her left arm, lifting weights, or items even as light as a purse on her left arm. The patient reports it generally does not awaken her up from sleep at night, feels better with sitting or lying down. It does not affect her bowel or bladder control or affect her ability to walk. She tried Tylenol as well as tramadol. Tramadol does help, but Tylenol does not. She did see her neurosurgeon who is recommending conservative therapies at this time and no surgical indications currently. She reports that she does have some fatigability with the left upper extremity with repetitive motions, but no overt loss of motor function. The patient is doing some stretching on her own, but no formal physical therapies or other treatments at this time. The patient rates her disability from 0-10, 10 being the worst, 0 with family home responsibilities, social activity and life support activities, 3 with recreation, occupation and sexual behavior and self-care activities. The patient did have an MRI scan of the cervical spine showing previous surgery. Mild to moderate cervical spondylosis from C2-C3 through C6-C7 with some disk osteophyte complex at C2-C3, C3-C4, C4-C5 and C5-C6 with mild right and moderate left neural foraminal narrowing C4-C5, C3-C4, C6-C7 shows mild bilateral neural foraminal narrowing as well. PAST MEDICAL HISTORY: Significant for hypertension, coronary artery disease, status post angioplasty, arthritis, depression. PREVIOUS SURGERY: Include in 1975 and 1978, cervical laminectomy in 1998, cervical diskectomy in 2000, lumbar decompression and fusion in 2016. Angioplasty 2019. CURRENT MEDICATIONS: Include Diovan, Lipitor, Celexa, Topamax, fish oil, vitamin C, D, and E, Singulair, Prilosec and daily baby aspirin. ALLERGIES: THE PATIENT IS ALLERGIC TO MORPHINE, CODEINE, PENICILLIN AND SULFA. FAMILY HISTORY: Significant for heart disease, cancers and diabetes. SOCIAL HISTORY: The patient drinks about 1 glass of alcohol a week, does not smoke. Denies using any illegal, illicit or recreational drugs. She is , lives with her spouse, lives locally in [place]. Reports she is currently retired. REVIEW OF SYSTEMS: The patient's review of systems is positive for those items mentioned in history of present illness. All systems reviewed and otherwise negative. It is complete, full and well documented on the patient's chart. PHYSICAL EXAMINATION: VITAL SIGNS: The patient's blood pressure 120/79, pulse is 76, respirations are 16, temperature is 98.4 degrees Fahrenheit, height is 63.5 inches, weight is 160 pounds. GENERAL: The patient is awake, alert, oriented, appropriate, very pleasant in demeanor. HEENT: Shows normocephalic, atraumatic. Extraocular movements are intact and symmetrical. Oral cavity: Mucous membranes moist and pink. Dentition is intact. NECK: Shows anterior throat supple without palpable lymphadenopathy noted. Swallow reflex symmetrical. CHEST: Shows normal on inspection. Breath sounds are clear bilaterally. No rales, rhonchi or wheezes auscultated. HEART: Shows S1, S2 clear. No murmurs auscultated. ABDOMEN: Soft, nontender, nondistended. No palpable organomegaly is noted. No rebound or guarding demonstrated. BACK: Shows spine grossly in the midline. Cervical paraspinous muscle shows symmetrical on inspection with a well-healed surgical scarring both posteriorly and anteriorly. Posterior cervical musculature shows symmetrical, but moderately with palpation and tenderness bilaterally throughout the upper, middle and lower distribution of paraspinous muscle again more on the left than the right and especially into the superior medial trapezius on the left side compared to the right with moderate increased firm and tone of the musculature without specific trigger points or radiation. The patient shows good rotational motion of the cervical spine with tenderness past 45 degrees in the left, but not to the right, which is rotating fully close to 90 degrees, full extension causes some minor tenderness on the left as does forward flexion performed completely as well. EXTREMITIES: The patient's upper extremities show deep tendon reflexes at 2+ in the biceps and triceps tendons. Motor exam is strong with 5/5 aboriginal liaison officer strength, bicep and tricep flexion. Peripheral pulses are 2+ radial. No peripheral edema is noted. Shoulder shrug is strong and intact without loss of strength on resistance as is abduction of shoulder to 90 degrees without loss of strength on resistance bilaterally. SKIN: Shows warm and dry, good turgor. No edema. No sores, rashes or bruising throughout. IMPRESSION: 1. This is a 69-year-old female with approximately 1-month history of injury to the neck with radicular symptoms resulting in the left shoulder and upper extremity. 2. MRI scan of cervical spine as noted. 3. Hypertension. 4. Arthritis. PLAN: Options were discussed with the patient including conservative medical managements, physical therapies and interventional techniques. She has done physical therapy in the past. We discussed the interventional technique is a cervical epidural steroid injection. The patient would like to proceed. Risks were discussed including but not limited to bleeding, infection, possibility of epidural hematoma, subsequent neurological compromise, dural puncture, headaches, spinal cord and/or nerve damage, side effects of steroid medication and poor results regarding pain control. The patient understands and wished to proceed. The patient will return to clinic in approximately 2 weeks for followup. She was counseled on return appointment, activity level and side effects to be aware of. DIAGNOSES: Cervical radiculopathy with cervical degenerative disk disease and cervical post-laminectomy syndrome. PROCEDURE: Cervical epidural steroid injection, translaminar approach at the C6-C7 level using C-arm fluoroscopic guidance under sterile prep and drape using local anesthetic. MEDICATION INJECTED: A total of 120 mg Depo-Medrol plus 5 mL of preservative-free normal saline and 2 mL of contrast. CONDITION AT DISCHARGE: Stable. The patient tolerated procedure well, had no complications. KRISSY SCHULZ MD DR: VIRI/meeta JOB#: [id number] / [id number] Alan Almonte MD
== END ==
LOC: PNCL 12:53
PROVIDERS: ATTEND Anesthesiology
DX: M50.123 Cervical disc disorder at C6-C7 level with radiculopathy (principal); M61.9 Calcification and ossification of muscle, unspecified; I10 Essential (primary) hypertension; I25.10 Atherosclerotic heart disease of native coronary artery without angina pectoris; F32.9 Major depressive disorder, single episode, unspecified; Z87.39 Personal history of other diseases of the musculoskeletal system and connective tissue; Z88.6 Allergy status to analgesic agent; Z88.1 Allergy status to other antibiotic agents; Z88.5 Allergy status to narcotic agent; Z98.890 Other specified postprocedural states; Z72.89 Other problems related to lifestyle
CPT/HCPCS: 62321; J1030; J1040; Q9965

== ENCOUNTER → 2020-05-29 | Outpatient (CLI) | payer MEDICARE, OTHER ==
[2020-03-21 15:00] VITALS: BP 110/50
--- NOTE | 2020-05-29 13:44 | PAIN ---
DATE OF SERVICE: 05/29/2020 PROGRESS NOTE FOR PAIN CLINIC DIAGNOSES: Cervical radiculopathy with cervical degenerative disk disease and cervical post-laminectomy syndrome. HISTORY OF PRESENT ILLNESS: The patient is a 69-year-old female who returns for followup status post cervical epidural steroid injection x 1. The patient reports only minimal decrease in pain in the neck and left upper extremity. The patient reports it is still painful at base of neck with turning her head to the left side as well. Otherwise, she feels fairly comfortable, but when she turns her head to the left, she has significant pain radiating to the left shoulder and upper extremity. The patient reports it is a 4 on a scale of 10 at its worst over the past week, 2 on average, 0 at its least and is a 2 today. The patient reports it can be sharp and radiating mostly with motion in the neck and with turning her head to the left side. The patient reports it does not awaken her from sleep at night, generally sleeps about 7-8 hours at a time. She describes the pain as radiating and sharp in the neck and left upper extremity. No new motor or sensory deficits or other complaints. PHYSICAL EXAMINATION: VITAL SIGNS: The patient's blood pressure 147/86, pulse 67, respirations 16, temperature 98.9 degrees Fahrenheit, weight is 163 pounds. GENERAL: The patient is awake, alert, oriented, appropriate, very pleasant demeanor. HEENT: Shows normocephalic, atraumatic. Extraocular movements are intact and symmetrical. Oral cavity: Mucous membranes moist and pink. Dentition is intact. NECK: Shows anterior throat supple without palpable lymphadenopathy noted. Swallow reflex symmetrical. CHEST: Shows normal on inspection. Breath sounds are clear bilaterally. HEART: Shows S1, S2 clear. No murmurs auscultated. ABDOMEN: Soft, nontender, nondistended. No palpable organomegaly is noted. No rebound or guarding demonstrated. BACK: Shows spine grossly in the midline, normal-appearing cervical lordotic curvature, with some minor decrease in cervical lordosis, but with well-healed surgical scar noted. On inspection, with palpation shows some moderate tenderness diffusely in the cervical paraspinous musculature, mainly in the inferior aspect of the cervical paraspinous muscles, slightly more on the left superior medial trapezius compared to the right, but without asymmetry, without trigger points. The patient does show good rotation of motion with some moderate pain reported with left lateral rotation past 45 degrees, not as much with right and not with extension or forward flexion. EXTREMITIES: Upper extremities show deep tendon reflexes at 2+ in the biceps and triceps tendons. Motor exam is strong with parking regulation enforcement officer strength rated at 5/5 as is bicep and tricep flexion. Peripheral pulses are 1+. No peripheral edema bilaterally. Options were discussed with the patient. The patient's old chart was reviewed as her current medication regimen updated. Current review of systems is updated today as well. We will proceed with a second in a series of cervical epidural steroid injection today with fluoroscopic guidance. Risks were again discussed including, but not limited to bleeding, infection, possibility of epidural hematoma, subsequent neurological compromise, dural puncture, headaches, spinal cord and/or nerve damage, side effects of steroid medication and poor results regarding pain control. The patient understands and wished to proceed. The patient will return to clinic in approximately 2 weeks for followup. She was counseled on return appointment, activity level and side effects to be aware of. DIAGNOSES: Cervical radiculopathy with cervical degenerative disk disease and cervical post-laminectomy syndrome. PROCEDURE: Cervical epidural steroid injection, translaminar approach at the C6-C7 level using C-arm fluoroscopic guidance under sterile prep and drape using local anesthetic. MEDICATION INJECTED: A total of 120 mg Depo-Medrol plus 5 mL of preservative-free normal saline and 2 mL of contrast. CONDITION AT DISCHARGE: Stable. The patient tolerated procedure well, had no complications. KRISSY SCHULZ MD DR: VIRI/meeta JOB#: [id number] / [id number]
== END | disposition home or self-care (01) ==
LOC: PNCL 12:53
PROVIDERS: ATTEND Anesthesiology
DX: M50.123 Cervical disc disorder at C6-C7 level with radiculopathy (principal); M96.1 Postlaminectomy syndrome, not elsewhere classified; Z88.0 Allergy status to penicillin; Z88.2 Allergy status to sulfonamides; Z88.5 Allergy status to narcotic agent; Z88.8 Allergy status to other drugs, medicaments and biological substances; Z79.899 Other long term (current) drug therapy
CPT/HCPCS: 62321; J1030; J1040; Q9965